=== PATIENT | male | born 1965 | race Two or more races ===

== ENCOUNTER 2023-06-18 09:20 | Emergency (ER) | payer OTHER ==
[~2023-06-18] VITALS: Ht 165.1 cm; Wt 99.8 kg
[2023-06-18] MEDS ORDERED: NEOMY/BACITRA/POLYMYXIN B OINT UD PACKET TP ONE ×2 (09:30→10:19)
[2023-06-18] MEDS ORDERED: TDAP DIPH,PERTUSS,TET VAC/PF 0.5 ML DISP.SYRIN IM ONE ×2 (09:30→10:19)
[2023-06-18] MEDS ORDERED: LIDOCAINE HCL 1% 20 ML VIAL IJ ONE (09:30)
[2023-06-18] MEDS ORDERED: LIDOCAINE HCL 1% 20 ML VIAL ONE (09:44)
[2023-06-18] MEDS ORDERED: IBUP-1955 PO (10:10)
[2023-06-18 10:52] VITALS: BP 155/89; O2SAT 99
== END 2023-06-18 10:52 | disposition home or self-care (01) ==
LOC: ER 09:20
DX: S01.01XA Laceration without foreign body of scalp, initial encounter (principal); E11.9 Type 2 diabetes mellitus without complications; I10 Essential (primary) hypertension; Z79.1 Long term (current) use of non-steroidal anti-inflammatories (NSAID); W01.0XXA Fall on same level from slipping, tripping and stumbling without subsequent striking against object, initial encounter; Y93.89 Activity, other specified; Y92.89 Other specified places as the place of occurrence of the external cause; Y99.8 Other external cause status
CPT/HCPCS: 12002; 90471; 90715; 99283; J3490; A4606; A4663

== ENCOUNTER 2023-06-27 16:08 | Emergency (ER) | payer OTHER ==
[~2023-06-27] VITALS: Ht 165.1 cm; Wt 99.8 kg
[~2023-06-27 16:08] MED LIST: IBUP-1955 PO
[2023-06-27 16:45] VITALS: BP 142/72; TEMP 98.2; O2SAT 98
== END 2023-06-27 16:48 | disposition home or self-care (01) ==
LOC: ER 16:10
DX: S01.01XD Laceration without foreign body of scalp, subsequent encounter (principal); X58.XXXD Exposure to other specified factors, subsequent encounter
CPT/HCPCS: A4606; A4663